=== PATIENT | male | born 1930 | race Caucasian/White ===

== ENCOUNTER 2020-06-21 06:47 | Inpatient (IN) ==
--- NOTE | 2020-06-21 07:27 | History & Physical Bridge Note ---
Date of Service June 21, 2020 History & Physical Bridge Note I have examined the patient, reviewed the History & Physical and in the interval since the performance of the History & Physical I have noted the following changes of clinical significance: no changes noted I have explained the risk, benefit and intent to the cardiac catheterization and the patient is willing to proceed.
--- NOTE | 2020-06-21 07:27 | Pre Anesthesia Assessment ---
Date of Service June 21, 2020 Pre Sedation Assessment Vital Signs Temp Pulse Resp BP Pulse Ox 06/21/20 07:00 36.9 C 76 20 179/100 H 96 Pre-Sedation Airway Assessment Smoking Status: Former smoker Hx Sleep Apnea: No Short, Thick Neck: No Thyromental Distance: > or= 3.5 Finger Breadths Oral Cavity: + WNL Mallampati Class: II ASA: ASA3 NPO Status Date of Last Intake of Fluids: 06/20/20 Date of Last Intake of Solid Food: 06/20/20 Notes The planned sedation has been discussed with the patient. Informed Consent was obtained. I have identified the patient, determined the appropriateness of sedation and have assessed the patient immediately prior to the procedure. All medicine(s) and interventions are by my order.
[2020-06-21] MEDS ORDERED: SODIUM CHLORIDE 0.9% 1000ML 1,000 ML IV SCH (07:30)
[2020-06-21] MEDS ORDERED: fentaNYL citrate 100 MCG/2 ML VIAL ONE (07:45)
[2020-06-21] MEDS ORDERED: niCARdipine HCL INJ 2.5 MG/ML 10 ML AMP ONE (07:45)
[2020-06-21] MEDS ORDERED: HEPARIN (PORCINE) 1000 UNIT/ML 10 ML (CATH LAB USE ONLY) ONE ×2 (07:45→09:16)
[2020-06-21] MEDS ORDERED: NITROGLYCERIN/D5W 100MCG/ML 20ML SYR ONE (07:45)
[2020-06-21] MEDS ORDERED: MIDAZOLAM HCL 1 MG/ML 2ML VIAL ONE ×2 (07:45→09:05)
--- NOTE | 2020-06-21 08:58 | Cardiac Catheterization ---
Date of Service June 21, 2020 Cardiac Cath Report Cardiac Cath Report Procedure: 1. Coronary angiography 2. Left ventriculogram 3. Left heart catheterization History: This is an 89-year-old male patient with a history of coronary artery disease who has had progressive exertional angina and was referred for cardiac catheterization. Procedure summary: After informed consent was obtained the patient was brought to the cardiac catheterization lab. An attempt was made at a right transradial approach however the wire would not advance beyond the midportion of the arm. He then was prepped and draped in usual manner for a right transfemoral approach. Preformed 5 [place] diagnostic catheters were utilized for the coronary angiograms. A 5 [place] pigtail catheter was utilized for the left ventriculogram and left heart pressures. Following the procedure the patient underwent coronary intervention. ACC data: Start time 7:52 AM End time 8:43 AM Opening aortic pressure 154/67 Closing aortic pressure 140/68 Left ventricular pressure 140/14 IV sedation 1 mg intravenous Versed IV fluids 62 cc normal saline Contrast 117 cc Optiray Fluoroscopy time 4.4 minutes Radiation 751 mGy DAP 79.03Gy/cm Right dominant system AUC score 9 Coronary angiography: Selective injections of the left coronary artery revealed the left main trunk to be patent. The left circumflex system consists of 2 large lateral marginal branches with the bifurcation from the main left circumflex. The first marginal branch has an 80% ostial stenosis and the second marginal branch is functionally occluded with left to left collaterals filling distally. There is a tiny ramus branch in the proximal portion of the left circumflex artery. In the proximal portion of the LAD there is a 80 to 90% eccentric stenosis. The LAD bifurcates into a large diagonal branch which is almost equal to the size of the main LAD which does not reach the apex of the heart. The diagonal branch has an 80 to 90% stenosis in its proximal segment. The right coronary artery is dominant. The right coronary artery is diffusely diseased. The PDA has an 80 to 90% mid stenoses. Left ventriculogram: The left ventricle is of normal size with normal systolic function. The mitral valve is competent. The aortic root and ascending aorta have normal morphology and diameter. Summary: The patient has significant three-vessel coronary artery disease as described above. Normal LV function. Recommendations: I discussed with the patient options of continued medical management, surgery, or coronary intervention. The patient states that he cannot do his activities of daily living without having angina and would like something done. He is adamant about not having open heart surgery. I do not believe he would do well if he had surgery and so therefore I believe that is not a bad decision. We will have the interventionalists look at his cath films and decide if coronary intervention can help his angina.
--- NOTE | 2020-06-21 09:38 | Hospitalist Consultation ---
Date of Consultation June 21, 2020 Assessment & Plan (1) S/P cardiac cath: - Monitor in PCU after cardiac cath - Cardiology consulted - appreciate recommendations and will continue Successful PCI of proximal LAD with single drug-eluting stent (2.5 x 18 mm [place]; postdilated with 3.0 NC). Angioplasty of proximal first diagonal with 2.0 balloon. Successful PCI of mid circumflex/OM1 with single drug-eluting stent (2.5 x 15 mm [place]; postdilated with 2.5 NC). - Allow diet after recommended time lying flat (2) CAD (coronary artery disease): - Recently had Imdur increased from 30 to 60 mg, continue - Continue baby aspirin - Following with Dr. Ananda MD in [place] as outpatient (3) HTN (hypertension): -Stable, monitor, slightly elevated after procedure (4) HLD (hyperlipidemia): -Patient has a history of statin intolerance and refuses to take this. Started ezetimibe April 2020 and is tolerating it (5) COPD (chronic obstructive pulmonary disease): - Hx of smoking, quit over 30 years ago - Cont inhalers as prescribed (6) DVT prophylaxis: - scds, plavix, aspirin CODE: Full code Dispo: From home, likely to remain in the hospital x 1 day Supervising Physician Co-Signing Physician Notes Patient seen and examined by me, care coordinated with Salma Loving PA-C, please refer to her note above for further detail. Mr. Toscano is a an 89-year-old male with history of CAD, underwent cardiac angiography with Dr. Sampson, for unstable angina and was found to have severe multivessel disease. He does not wish to undergo bypass, and he would not be a good candidate for it either. Therefore interventional cardiology was contacted, and BART stent was placed into LAD and circumferential. Patient is currently lying in bed, resting in no acute distress. He is alert and oriented, answering questions appropriately. Lungs are clear to auscultation bilaterally, without any significant wheezing rhonchi or crackles. Heart sounds regular with soft systolic murmur, abdomen soft, nontender nondistended. No lower extremity edema noted. Patient moves all 4 extremities spontaneously. Dressings placed over right groin access. Mild ecchymosis at right wrist/ cath attempt. Continue to observe overnight, further recommendations per cardiology. Samara Palencia MD History of Present Illness Reason for Consultation: Medical management Requesting Physician: Dr. Sampson Attending Physician: Jatinder Sampson DO History of Present Illness This is an 89 yo M with PMhx of CAD, s/p cardiac cath on 10/08/2011 [facility] circumflex 60 to 70% stenosis at that time, HTN, HLD, hx of PE in 2013, statin intolerance, moderate COPD/emphysema, CKD stage III, and remote tobacco use history, who underwent elective cardiac catheterization on 06/21/20 due to angina in limited ability to perform ADLs without chest pain. He has been following with Dr. Malave for cardiology in [place] as an outpatient. Today Dr. Meek performed cardiac cath where stenting was done to the LAD and circumflex BART placed in each. Pt is seen at bedside and has no complaints. Denies any shortness of breath, chest pain, pressure, palpitations, or other issues. Pt reports wanting to go home today if at all possible. He recalls his last cardiac cath and how none of the monitoring afterwards was "like this". He is agreeable to further monitoring at this time. 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 Person to contact is Kwesi, who is the older brother of Jose Raul if needed. Pt walks without ambulatory device. Allergies Allergy/AdvReac Type Severity Reaction Status Date / Time No Known Allergies Allergy Unverified 12/29/12 10:43 Home Medications Medication Instructions Recorded Confirmed Type ASPIRIN (ASPIRIN CHEWABLE) 81 mg PO DAILY #1 tab 09/25/11 06/21/20 History Fish Oil (OMEGA-3) 1 cap PO DAILY #2 oil 09/25/11 06/21/20 History MULTIVITAMINS/MINERALS (MVI WITH 1 tab PO DAILY #1 tab 09/25/11 06/21/20 History MINERALS) [id number] 2 tab PO DAILY #1 09/25/11 06/21/20 History PreserVision Lutein 1 cap PO DAILY 06/21/20 06/21/20 History albuterol 90 mcg INHALATION Q4 PRN 06/21/20 06/21/20 History ezetimibe 10 mg PO DAILY 06/21/20 06/21/20 History isosorbide mononitrate 60 mg PO DAILY 06/21/20 06/21/20 History nitroglycerin 0.4 mg SUBLINGUAL PRN 06/21/20 History tiotropium bromide [Spiriva with 1 cap INHALATION DAILY 06/21/20 06/21/20 History HandiHaler] Patient History Social History Smoking Status: Former smoker Hx Alcohol Use: Yes Alcohol type: beer Hx Substance Use: No Preferred Language: Maori Communication Ability: Effective Echo Technician Required: No Beliefs That Will Affect Care: None Current Living Situation: Other Other Information That Helps Us Care for You: No Feels Safe at Home: Yes Safety Concerns: Feels Safe At This Time Review of Systems Review of Systems: Constitutional: No fever, sweats or chills Eyes: No diplopia, no worsening or blurred vision ENT: normal hearing, no trouble swallowing Respiratory: No cough, sputum, dyspnea at rest or on exertion Cardiovascular: No chest pain, tightness or palpitations Abdomen: No pain, nausea, vomiting, diarrhea or constipation Musculoskeletal: No joint pain, calf pain, swelling Neurologic: No weakness, numbness/tingling, or balance problems Psychiatric: No anxiety or depression Skin: No rash or itch Physical Exam Physical Exam: General: awake, alert, no apparent distress Head: Normocephalic, atraumatic ENT: PERRL, EOMI, no pharyngeal exudate, mucous membranes moist Chest: Clear to auscultation, on room air, no adventitious breath sounds Cardiac: Regular rate and rhythm, +systolic murmur grade II/, no JVD, normal peripheral pulses, good capillary refill Abdominal: NABS x 4 quadrants, soft, nondistended, nontender to palpation, no rebound or guarding. Left groin site packed, dressing c/d/i. Extremities: Right wrist attempt cath site minimal ecchymosis. Normal inspection, no peripheral edema or erythema, calfs nontender to palpation Psych: Normal mood and affect Neuro: AAO x 3, strength intact bilaterally and rated 5/5, no motor deficits, speech is clear, no peripheral sensory deficits Results & Data Results & Data ([facility]) Vital Signs (Past 12 Hours) Vital Signs Temp Pulse Resp BP Pulse Ox 06/21/20 07:00 36.9 C 76 20 179/100 H 96 Diagnostic Findings Nuclear stress test 11/2019 The LV ejection fraction is calculated at >70%. Lexiscan nuclear cardiac stress test negative for ischemia. Gated SPECT images reveals normal myocardial thickening and wall motion. Echocardiogram 2019 Calculated LV ejection Fraction = 65% (bi-plane method of discs). The LV wall thickness is mildly increased (concentric). The left ventricular wall motion is normal. The right ventricular cavity size is normal (basal dimension < 4.2 cm RV apical 4 chamber view). The right ventricular systolic function is normal as assessed by tricuspid annular plane systolic excursion (TAPSE) (normal >1.7 cm). The left ventricular diastolic function is mildly abnormal (grade I). There is no significant aortic regurgitation. Mild mitral regurgitation is present. Mild tricuspid regurgitation is present. No pericardial effusion is noted. Normal IVC size and collapsability with sniff indicates a normal right atrial pressure of 3 mmHg. The estimated pulmonary artery systolic pressure is 31mm Hg Medications Administered Current Inpatient Medications Acetaminophen (Acetaminophen 325 Mg Tab) 650 mg PO Q4H PRN PRN Reason: MILD Pain (Scale 1,2,3) Stop: 07/21/20 10:06 Albuterol (Albuterol Hfa 8 Gm Inhaler) 1 puffs INH Q4H PRN PRN Reason: Dyspnea Stop: 07/21/20 10:41 Aspirin (Aspirin 81 Mg Ectab) 81 mg PO QAM [facility] Stop: 07/22/20 08:59 Clopidogrel Bisulfate (Clopidogrel Bisulfate 75 Mg Tab) 75 mg PO QAM [facility] Stop: 07/22/20 08:59 Ezetimibe (Ezetimibe 10 Mg Tablet) 10 mg PO DAILY [facility] Stop: 07/22/20 08:59 Sodium Chloride (Nss 1000ml) 1,000 mls @ 100 mls/hr IV .Q10H ANALY Stop: 06/21/20 15:45 Last Admin: 06/21/20 11:58 Dose: Not Given Documented by: Isosorbide Mononitrate (Isosorbide Sharp Extended Rel 60 Mg Tabcr) 60 mg PO DAILY ANALY Stop: 07/22/20 08:59 Multivitamins/Minerals (Cerovite Adv Formula Tab) 1 tab PO DAILY ANALY Stop: 07/22/20 08:59 Nitroglycerin (Nitroglycerin Sl 0.4 Mg/Tab Tab) 0.4 mg SL PRN PRN PRN Reason: Chest Pain Stop: 07/21/20 10:06 Ondansetron HCl (Ondansetron Inj 2 Mg/Ml 2 Ml Vial) 4 mg IV Q6H PRN PRN Reason: Nausea And Vomiting Stop: 07/21/20 10:06 Umeclidinium [place] (Umeclidinium [place] 62.5mcg/Blister 7 Puffs/Inhaler) 1 puffs INH DAILY ANALY Stop: 07/22/20 08:59
--- NOTE | 2020-06-21 09:52 | Post Anesthesia Assessment ---
Date of Service June 21, 2020 Post Sedation Assessment Vital Signs Temp Pulse Resp BP Pulse Ox 06/21/20 07:00 98.4 F 76 20 179/100 H 96 Recovery Score Activity: Moves 4 extremities Respiration: Deep Breath/Cough Circulation: +/-20% PreAnes Value Consciousness: Fully Awake Oxygen Saturation: O2 needed for >90% Discharge Sedation Level of Care: Fast Track Phase II Post Sedation Plan On clinical assessment, the patient appears to have tolerated the sedation without complications. Patient is recovering as anticipated. Patient will continue to be monitored by nursing and may be discharged when sedation discharge criteria are met per below protocol. Upon Completions of procedure up to 15 minutes continue every 5 minute vital signs and the P.A.R. score; then discharge to a Phase I or Fast Track to Phase II per the following guidelines: * Discharge Patient to appropriate Phase II area if PAR is 8 or greater or return to pre- procedure baseline. The post - procedure orders will be as directed. * If PAR score is less than 8 or not return to pre-procedure baseline then patient will follow Phase I monitoring till PAR is reached for Phase II. The Phase I may be done in procedure room or may call to secure a Phase I area. * If naloxone or flumazenil are used for reversal, hold in Phase I for continued monitoring from when last reversal dose was given for a minimum of 60 minutes or longer pending the nurse and/or physician discretion of patient condition before discharge to Phase II. Please call the Sedation Physician to re-evaluate and complete post-note for discharge to Phase II area. Do NOT discharge from procedure sedation or Phase 1 until post- sedation evaluation note is complete by procedure /sedation MD Sedation Discharge Instructions to be given to the patient at discharge to home.
[2020-06-21] MEDS ORDERED: CLOPIDOGREL BISULFATE 300 MG TAB ONE (09:56)
[2020-06-21] MEDS ORDERED: ONDANSETRON INJ 2 MG/ML 2 ML VIAL IV PRN (10:07)
[2020-06-21] MEDS ORDERED: NITROGLYCERIN SL 0.4 MG/TAB TAB SL PRN (10:07)
[2020-06-21] MEDS ORDERED: ACETAMINOPHEN 325 MG TAB PO PRN (10:07)
--- NOTE | 2020-06-21 10:07 | Cardiac Catheterization ---
ACC Data: [employer] Development [employer] Cardiac Status Clinical evaluation leading to the procedure CAD Presenation: Unstable angina Anginal Classification: CCS III Heart Failure: No Cardiogenic Shock within 24 Hours: No Cardiac Arrest within 24 Hours: No Imaging Studies Past 6 Months: Yes Stress Studies Past 6 Months: No Diagnostic Physicians Name: Storm Meek MD Status: Elective Closure Device Percutaneous Entry Location: Femoral Closure Device: Angio-Seal Recommendations: PCI without planned CABG PCI Indication: Angina despite med therapy and Unstable Angina Lesion Segment Name: Proximal LAD Culprit Artery: Yes Stenosis Prior to Rx (%): 80 Chronic Total Occlusion: No IVUS: No FFR: No Pre-Procedure ABDOULAYE Flow: 3 Previously Treated Lesion: No Lesion Complexity: Non-High/Non-C Lesion Length (mm): 15 Thrombus Present: No Bifurcation Lesion: Yes Guidewire Across Lesion: Stenosis Post-Procedure (%): 0 Post-Procedure ABDOULAYE Flow: 3 Devices(s) Deployed: Yes Yes Lesion #2 Segment Name: mid circumlex/OM1 Culprit Artery: Yes Stenosis Prior to Rx (%): 80 Chronic Total Occlusion: No IVUS: No FFR: No Pre-Procedure ABDOULAYE Flow: 3 Previously Treated Lesion: No Lesion Complexity: Non-High/Non-C Lesion Length (mm): 12 Thrombus Present: No Bifurcation Lesion: Yes Guidewire Across Lesion: Yes Stenosis Post-Procedure (%): 0 Post-Procedure ABDOULAYE Flow: 3 Devices(s) Deployed: Yes Intraprocedure Events Significant Disection: No Perforation: No Cardiac Cath Procedure Full Procedure Date June 21, 2020 Pre-Procedure Diagnosis Pre-Procedure Diagnosis: Angina and CAD AUC Score AUC Score: 7 Post-Procedure Diagnosis Post-Procedure Diagnosis: Severe CAD and Successful PCI Procedure(s) Performed Procedure(s) Performed: Coronary Angiography, PTCA and Drug Eluting Stent Addiction Nurse Storm Meek MD Director Of Medical Education(s) Larry Estimated Blood Loss Estimated Blood Loss: 15 Medication(s) Medication(s): Clopidogrel, Fentanyl, Heparin, Lidocaine 1%, Nicardipine, Nitroglycerin and Versed Summary of Findings Indication: Accelerating angina Access: 6 Fr right common femoral artery Catheters: EBU 3.75 guide Findings: For full details of patient's coronary angiography please see cath report dictated by Dr. Sampson. Briefly, patient found to have multivessel disease including proximal LAD/D1 and severe mid circumflex into OM1 disease. Decision to proceed with PCI. -- PCI -- Antithrombotic therapy: Heparin, clopidogrel Procedure: Left main cannulated with EBU 3.75 guide [place] wire passed across LAD lesion into distal vessel Md Physician Dermatologist 50 wire passed into first diagonal Proximal first diagonal stenosis dilated with 2.0 balloon. Stenosis expanded appropriately. Proximal LAD lesion predilated with 2.0 compliant balloon Dilated LAD lesion stented with 2.5 x 18 mm [place] drug-eluting stent Stent post-dilated with 3.0 noncompliant balloon IC vasodilators administered for spasm Post procedure ABDOULAYE 3 flow in LAD, diagonal, stent well expanded with minimal residual stenosis. Mild residual stenosis in diagonal without evidence of dissection. Wires removed and submersible pilot 50 wire redirected into circumflex into OM1 Mid circumflex/proximal OM1 dilated with 2.5 balloon Mid circumflex into OM1 stented with 2.5 x 15 mm [place] drug-eluting stent Stent postdilated with 3.0 NC balloon IC vasodilators administered for spasm Post procedure ABDOULAYE-3 flow in circumflex system with well-expanded stent and no apparent edge complications or branch vessel loss. Arterial Closure: Angio-Seal Summary: 1. Severe multi-vessel coronary artery disease 2. Successful PCI of proximal LAD with single drug-eluting stent (2.5 x 18 mm [place]; postdilated with 3.0 NC). 3. Angioplasty of proximal first diagonal with 2.0 balloon. 4. Successful PCI of mid circumflex/OM1 with single drug-eluting stent (2.5 x 15 mm [place]; postdilated with 2.5 NC). Recommendations: To PCU for continued monitoring Loaded with clopidogrel 600 mg in Community Development Planner Continue dual-antiplatelet therapy for at least 6 months Consult cardiac Rehab Hemodynamics Rest Ao:: 153/72/160 Final Ao: 91/43/81 LV: -- Recommendations Recommendations: PCI without planned CABG Specimens Specimens: None Radiation Exposure (mGy) 3588 Contrast (mls) 230 Fluids (cc crystalloids) Fluids (cc crystalloids): 377 Drains Drains: None Anesthesia Moderate [id number] Procedural Complication(s) None Disposition PCU I attest to the content of the Intraoperative Record and any orders documented therein. Any exceptions are noted below. [facility] Card Cath Procedure Codes Moderate Sedation Procedure 1: Sedation/Anesthesia: 24283 Mod Sedation by the same physician; Ea [id number] Minutes Angioplasty Procedure 1: Cardiovascular Angioplasty Procedures: PTCA; ea addl branch of a major cor art RC LC LD Stenting Procedure 1: Cardiovascular Stent Procedures: Perc transcatheter placement of intracoronary stent(s), with ang Procedure 2: Cardiovascular Stent Procedures: Ea addl branch of a major coronary artery PG Care Time/CCT Total # of Minutes Spent Total Time Spent with Patient: Total time spent is greater than 50% in coordination of care (as documented) at patient's floor/unit and/or counseling patient:
[2020-06-21] MEDS ORDERED: ALBUTEROL HFA 8 GM INHALER INH PRN (10:42)
[2020-06-22 06:18] LABS: Basophils # (auto) 0.01 K/uL (0-0.2); Basophils % (auto) 0.1 %; Eosinophils # (auto) 0.09 K/uL (0-0.5); Eosinophils % (auto) 1.2 %; Hematocrit (blood only) 45.5 % (42-52); Immature Granulocytes # (auto) 0.01 K/uL (0.00-0.02); Immature Granulocytes % (auto) 0.1 %; Lymphocytes # (auto) 2.66 K/uL (1.2-3.4); Lymphocytes % (auto) 34.4 %; Mean Corpuscular Hemoglobin 31.1 pg (25-34); Mean Corpuscular Hgb Conc 35.2 g/dL (32-36); Mean Corpuscular Volume 88.5 fL (80-100); Mean Platelet Volume 9.2 fL (7.4-10.4); Monocytes % (auto) 12.9 %; Neutrophils # (auto) 3.96 K/uL (1.4-6.5); Neutrophils % (auto) 51.3 %; Platelet Count 166 K/uL (130-400); RDW Standard Deviation 45.8 fL (36.4-46.3); Red Blood Count 5.14 M/uL (4.7-6.1); White Blood Count 7.73 K/uL (4.8-10.8)
[2020-06-22 06:44] LABS: Calcium 9.3 mg/dl (8.5-10.1); Creatinine Clr Calc Pharmacy 42.6 ml/min; Est GFR (African American) 71.8; Est GFR (Non-African American) 61.9
--- NOTE | 2020-06-22 08:02 | Electrocardiogram Report ---
Test Reason : Blood Pressure : / mmHG Vent. Rate : 056 BPM Atrial Rate : 056 BPM P-R Int : 166 ms QRS Dur : 086 ms QT Int : 444 ms P-R-T Axes : 067 033 021 degrees QTc Int : 428 ms Sinus bradycardia Otherwise normal ECG No previous ECGs available Confirmed by Javier Méndez ([id number]) on 06/22/2020 8:01:43 AM Referred By: Jatinder Sampson Confirmed By:Javier Méndez
[2020-06-22] MEDS ORDERED: UMECLIDINIUM BROMIDE 62.5MCG/BLISTER 7 PUFFS/INHALER INH SCH (09:00)
[2020-06-22] MEDS ORDERED: ASPIRIN 81 MG ECTAB PO SCH (09:00)
[2020-06-22] MEDS ORDERED: CLOPIDOGREL BISULFATE 75 MG TAB PO SCH (09:00)
[2020-06-22] MEDS ORDERED: EZETIMIBE 10 MG TABLET PO SCH (09:00)
[2020-06-22] MEDS ORDERED: CEROVITE ADV FORMULA TAB PO SCH (09:00)
[2020-06-22] MEDS ORDERED: ISOSORBIDE MONO EXTENDED REL 60 MG TABCR PO SCH (09:00)
--- NOTE | 2020-06-22 09:45 | Hospitalist Progress Note ---
Date of Service June 22, 2020 Assessment & Plan (1) S/P cardiac cath: - Monitor in PCU after cardiac cath - no overnight events on tele - Cardiology consulted - appreciate recommendations and will continue Successful PCI of proximal LAD with single drug-eluting stent (2.5 x 18 mm [place]; postdilated with 3.0 NC). Angioplasty of proximal first diagonal with 2.0 balloon. Successful PCI of mid circumflex/OM1 with single drug-eluting stent (2.5 x 15 mm [place]; postdilated with 2.5 NC). - Pt did not eat breakfast due to wanting to eat at home today. Anticipates discharge. (2) CAD (coronary artery disease): - Recently had Imdur increased from 30 to 60 mg, continue - Continue baby aspirin - Following with Dr. Ananda MD in [place] as outpatient - As above (3) HTN (hypertension): -Stable, monitor, slightly elevated since cath, refused morning medications as above. (4) HLD (hyperlipidemia): -Patient has a history of statin intolerance and refuses to take this. Started ezetimibe April 2020 and is tolerating it (5) COPD (chronic obstructive pulmonary disease): - Hx of smoking, quit over 30 years ago - Cont inhalers as prescribed (6) DVT prophylaxis: - scds, plavix, aspirin CODE: Full code Dispo: From home, discharge per the primary team likely today. Thank you for involving medicine in the care of Mr. Toscano, please do not hesitate to call with questions or concerns. Admission and Anticipated Discharge Date Admission Date: June 21, 2020 Supervising Physician Co-Signing Physician Notes Patient is seen and examined at bedside. States feeling well today. Eager to get discharged. Discussed with cardiology today. Denies chest pain, dyspnea, dizziness, nausea, abdominal pain. Offers no other complaints. On exam patient is moderately built and nourished, no apparent distress, normocephalic atraumatic, lungs are clear to auscultation, normal breath sounds, S1-S2, no murmur, abdomen soft, nontender, normal bowel sounds, alert, awake, oriented, grossly no focal deficits, no pedal edema. Unstable angina S/P successful PCI to LAD. Appreciate cardiology input. Continue aspirin, Plavix, Zetia. History of statin intolerance. Needs follow-up with cardiology upon discharge. Continue to monitor. I personally reviewed the record. Patient is interviewed and examined at bedside. Patient's care is coordinated with Shania Loving PA-C. Please refer to the documentation above for details of patient's presentation and for discussion of other issues. Subjective The patient was seen and examined this morning. 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 Denies any complaints. He notes he has not had any chest pain with exertional activities such as walking, getting dressed, going to the bathroom, etc. Did not eat breakfast and refuses to take medication here this morning because he would like to go home and eat his own breakfast first, then take medications. Review of Systems Review of Systems: Constitutional: No fever, sweats or chills Eyes: No diplopia, no worsening or blurred vision ENT: normal hearing, no trouble swallowing Respiratory: No cough, sputum, dyspnea at rest or on exertion Cardiovascular: No chest pain, tightness or palpitations Abdomen: No pain, nausea, vomiting, diarrhea or constipation Musculoskeletal: No joint pain, calf pain, swelling Neurologic: No weakness, numbness/tingling, or balance problems Psychiatric: No anxiety or depression Skin: No rash or itch Physical Exam Physical Exam: General: awake, alert, no apparent distress Head: Normocephalic, atraumatic ENT: PERRL, EOMI, no pharyngeal exudate, mucous membranes moist Chest: Clear to auscultation, on room air, no adventitious breath sounds Cardiac: Regular rate and rhythm, few extra beats, + systolic murmur, no JVD, normal peripheral pulses, good capillary refill Abdominal: NABS x 4 quadrants, soft, nondistended, nontender to palpation, no rebound or guarding Extremities: Normal inspection, no peripheral edema or erythema, calfs nontender to palpation Psych: Normal mood and affect Neuro: AAO x 3, strength intact bilaterally and rated 5/5, no motor deficits, speech is clear, no peripheral sensory deficits Results & Data Results & Data ([facility]) Vital Signs (Past 12 Hours) Vital Signs Temp Pulse Pulse Resp BP BP Pulse Ox 06/22/20 07:45 78 06/22/20 07:17 36.7 C 71 19 151/70 H 94 06/22/20 03:29 36.5 C 69 15 147/62 H 94 06/21/20 23:03 36.6 C 74 18 154/85 H 93
--- NOTE | 2020-06-22 11:47 | Cardiology Progress Note ---
Date of Service June 22, 2020 Assessment & Plan (1) CAD (coronary artery disease): (2) Stented coronary artery: The patient is very anxious to leave the hospital. He can be discharged on his current medications. [facility] He should have follow-up with them in the next 2 to 3 weeks. Admission and Anticipated Discharge Date Admission Date: June 21, 2020 Subjective Patient very anxious to go home. Uneventful night. Review of Systems Review of Systems: All systems reviewed & are unremarkable except as noted in Subjective Physical Exam Physical Exam: General: no acute distress and stated age Head: normocephalic, no masses, lesions, tenderness or abnormalities Eyes: conjunctiva are pink and non-injected, sclera clear Neck: supple, no adenopathy, no bruits, normal jugular venous pulse, no hepatojugular reflux Chest: normal shape and normal respiratory effort Lungs: clear to auscultation and percussion Cardiac Exam: - regular rate & rhythm, no murmurs gallops or rubs - normal S1, normal S2 Pulses: 2(+) throughout Abdomen: abdomen soft, non-tender, no abnormal masses and no hepatosplenomegaly Musculoskeletal: no gait disturbance, no joint inflammation, no deforming arthritis Extremities: no edema and no cyanosis, cath site looks good. Neuro: grossly normal exam Results & Data ([facility]) Vital Signs (Past 12 Hours) Vital Signs Temp Pulse Pulse Resp BP BP Pulse Ox 06/22/20 11:24 36.7 C 71 19 147/62 H 151/70 H 94 06/22/20 07:45 78 06/22/20 07:17 36.7 C 71 19 151/70 H 94 06/22/20 03:29 36.5 C 69 15 147/62 H 94 Laboratory Results Laboratory Results - last 24 hr 06/22/20 06/22/20 05:51 05:51 WBC 7.73 RBC 5.14 Hgb 16.0 Hct 45.5 MCV 88.5 MCH 31.1 MCHC 35.2 RDW Std Deviation 45.8 RDW Coeff of [place] 14.0 Plt Count 166 MPV 9.2 Immature Gran % (Auto) 0.1 Neut % (Auto) 51.3 Lymph % (Auto) 34.4 [place] % (Auto) 12.9 Eos % (Auto) 1.2 Baso % (Auto) 0.1 Neut # (Auto) 3.96 Lymph # (Auto) 2.66 [place] # (Auto) 1.00 H Eos # (Auto) 0.09 Baso # (Auto) 0.01 Immature Gran # (Auto) 0.01 Sodium 139 Potassium 4.0 Chloride 108 H Carbon Dioxide 27 Anion Gap 4.0 BUN 17 Creatinine 1.06 Est Cr Clr Drug Dosing 42.6 Est GFR ( Amer) 71.8 Est GFR (Non-Af Amer) 61.9 BUN/Creatinine Ratio 16.0 Glucose 100 H Calcium 9.3 Medications Administered Current Inpatient Medications Acetaminophen (Acetaminophen 325 Mg Tab) 650 mg PO Q4H PRN PRN Reason: MILD Pain (Scale 1,2,3) Stop: 07/21/20 10:06 Albuterol (Albuterol Hfa 8 Gm Inhaler) 1 puffs INH Q4H PRN PRN Reason: Dyspnea Stop: 07/21/20 10:41 Aspirin (Aspirin 81 Mg Ectab) 81 mg PO QAM [facility] Stop: 07/22/20 08:59 Last Admin: 06/22/20 07:46 Dose: Not Given Documented by: Clopidogrel Bisulfate (Clopidogrel Bisulfate 75 Mg Tab) 75 mg PO QAM [facility] Stop: 07/22/20 08:59 Last Admin: 06/22/20 07:46 Dose: Not Given Documented by: Ezetimibe (Ezetimibe 10 Mg Tablet) 10 mg PO DAILY [facility] Stop: 07/22/20 08:59 Last Admin: 06/22/20 07:46 Dose: Not Given Documented by: Isosorbide Mononitrate (Isosorbide [place] Extended Rel 60 Mg Tabcr) 60 mg PO DAILY [facility] Stop: 07/22/20 08:59 Last Admin: 06/22/20 07:46 Dose: Not Given Documented by: Multivitamins/Minerals (Cerovite Adv Formula Tab) 1 tab PO DAILY [facility] Stop: 07/22/20 08:59 Last Admin: 06/22/20 07:46 Dose: Not Given Documented by: Nitroglycerin (Nitroglycerin Sl 0.4 Mg/Tab Tab) 0.4 mg SL PRN PRN PRN Reason: Chest Pain Stop: 07/21/20 10:06 Ondansetron HCl (Ondansetron Inj 2 Mg/Ml 2 Ml Vial) 4 mg IV Q6H PRN PRN Reason: Nausea And Vomiting Stop: 07/21/20 10:06 Umeclidinium [place] (Umeclidinium [place] 62.5mcg/Blister 7 Puffs/Inhaler) 1 puffs INH DAILY [facility] Stop: 07/22/20 08:59 Last Admin: 06/22/20 07:46 Dose: Not Given Documented by:
--- NOTE | 2020-06-22 19:07 | Discharge Summary ---
Date of Service June 22, 2020 Admission HPI Per Admitting Provider History of Present Illness This is an 89 yo M with PMhx of CAD, s/p cardiac cath on 10/08/2011 [facility] circumflex 60 to 70% stenosis at that time, HTN, HLD, hx of PE in 2013, statin intolerance, moderate COPD/emphysema, CKD stage III, and remote tobacco use history, who underwent elective cardiac catheterization on 06/21/20 due to angina in limited ability to perform ADLs without chest pain. He has been following with Dr. Malave for cardiology in [place] as an outpatient. Today Dr. Meek performed cardiac cath where stenting was done to the LAD and circumflex BART placed in each. Pt is seen at bedside and has no complaints. Denies any shortness of breath, chest pain, pressure, palpitations, or other issues. Pt reports wanting to go home today if at all possible. He recalls his last cardiac cath and how none of the monitoring afterwards was "like this". He is agreeable to further monitoring at this time. Admission Exam Per Admitting Provider Physical Exam Physical Exam: General: awake, alert, no apparent distress Head: Normocephalic, atraumatic ENT: PERRL, EOMI, no pharyngeal exudate, mucous membranes moist Chest: Clear to auscultation, on room air, no adventitious breath sounds Cardiac: Regular rate and rhythm, +systolic murmur grade II/, no JVD, normal peripheral pulses, good capillary refill Abdominal: NABS x 4 quadrants, soft, nondistended, nontender to palpation, no rebound or guarding. Left groin site packed, dressing c/d/i. Extremities: Right wrist attempt cath site minimal ecchymosis. Normal inspectio n, no peripheral edema or erythema, calfs nontender to palpation Psych: Normal mood and affect Neuro: AAO x 3, strength intact bilaterally and rated 5/5, no motor deficits, speech is clear, no peripheral sensory deficits Principal Diagnosis Unstable Angina S/P PCI Discharge Data Allergies Allergy/AdvReac Type Severity Reaction Status Date / Time No Known Allergies Allergy Unverified 12/29/12 10:43 Consultations 06/21/20 08:46 Consult Hospitalist Routine 06/21/20 10:10 Consult Cardiac Rehabilitation Routine Procedures Performed Operation Date: 06/21/20 08:00 Actual Procedures s Cineradiography w/Routine Exam - Jatinder Sampson, DO p Cath, Left with Cors and Vent - Jatinder Sampson, DO s Drug Eluting Stent SGl Vessel - Santo Meek MD s Drug Eluting Stent each ADDTL Vessel - Santo Meek MD s Placement Art Occlusive Device - Santo Meek MD Ordered Studies 06/21/20 07:13 CL Cath Imgs for PACS use only Routine Hospital Course (1) S/P cardiac cath: - Monitor in PCU after cardiac cath - no overnight events on tele - Cardiology consulted - appreciate recommendations and will continue Successful PCI of proximal LAD with single drug-eluting stent (2.5 x 18 mm Yosi; postdilated with 3.0 NC). Angioplasty of proximal first diagonal with 2.0 balloon. Successful PCI of mid circumflex/OM1 with single drug-eluting stent (2.5 x 15 mm [place]; postdilated with 2.5 NC). - Pt did not eat breakfast due to wanting to eat at home today. Anticipates discharge. (2) CAD (coronary artery disease): - Recently had Imdur increased from 30 to 60 mg, continue - Continue baby aspirin - Following with Dr. Ananda MD in [place] as outpatient - As above (3) HTN (hypertension): -Stable, monitor, slightly elevated since cath, refused morning medications as above. (4) HLD (hyperlipidemia): -Patient has a history of statin intolerance and refuses to take this. Started ezetimibe April 2020 and is tolerating it (5) COPD (chronic obstructive pulmonary disease): - Hx of smoking, quit over 30 years ago - Cont inhalers as prescribed (6) DVT prophylaxis: - scds, plavix, aspirin CODE: Full code Dispo: From home, discharge per the primary team likely today. Thank you for involving medicine in the care of Mr. Toscano, please do not hesitate to call with questions or concerns. Total Time Total Time Spent Total Time Spent (In Minutes): 38 minutes Total Time Includes: Examination of the Patient, Discharge Planning, Medication Reconciliation, Communication With Other Providers and Other Discharge Plan Discharge Items Patient Disposition: Home - Self-Care Reason For Visit: Coronary Artery Disease; Chest Pain Discharge Diagnosis: Unstable Angina Activity: Per Instructions section Exercise/Sports: Wait until after follow-up appointment Non-emergency contact: Primary Care Provider and Classroom Aide Call non-emergency contact if: you have any medication questions, your symptoms worsen, your pain is not controlled, your pain is concerning for you and you have a fever Follow-up/Referrals: Vaibhav Marquez DO [Primary Care Provider] - 06/27/20 10:00 am Diet: Heart Healthy Addtl Attending Provider Instructions: Follow-up with your primary care physician Dr.Jean Marquez in 1 week as advised Follow-up with your pedicurist Dr. Malave in 1-2 weeks as advised Take your medications regularly as prescribed. Seek immediate medical attention if your symptoms reoccur or worsen Home Care: * Take your medications exactly as directed. Don't skip doses. * Remember that recovery after a heart attack takes time. Plan to rest for at lease 4-8 weeks while you recover. Then return to normal activity when your doctor says it's okay. * Ask your doctor about joining a heart rehabilitation program. * Tell your doctor if you are feeling depressed. Feelings of sadness are common after a heart attack, but it is important that you speak to someone if you are feeling overwhelmed by these feelings. * If you are having chest pain, call 911 for an ambulance. Do NOT drive yourself to the hospital. * Ask your family members to learn CPR. * Learn to take your own blood pressure and pulse. Keep a record of your results. Ask your doctor when you should seek emergency medical attention. He or she will tell you which blood pressure reading is dangerous. Lifestyle Changes: * Maintain a healthy weight. Get help to lose any extra pounds. * Cut back on salt. * Limit canned, dried, packaged, and fast foods. * Don't add salt to your food. * Season foods with herbs instead of salt when you cook. * Break the smoking habit. Enroll in a stop-smoking program to improve your chances of success. * Limit fatty foods. * Ask your doctor about having your lipid levels checked regularly. * Build up your activity according to your doctor's recommendation. * Ask your doctor when it's okay to resume sexual activity. * Tell your doctor about any erectile dysfunction (ED) medication you are ta cecilia. Some ED medications are not safe if you take certain heart medications. * Try to manage stress. Follow Up: It is important for you to keep your follow up appointments with your medical provider. Pending Studies at Discharge: No Stand-Alone Forms: My [facility], Smoking Cessation Medications and DC Order Prescriptions: New clopidogrel 75 mg Tablet 75 mg PO QAM Qty: 30 RF: 1 aspirin 81 mg Tablet,Delayed Release (Dr/Ec) 81 mg PO QAM Qty: 30 RF: 1 Continued Fish Oil (OMEGA-3) oil 1 cap PO DAILY Qty: 2 RF: 0 MULTIVITAMINS/MINERALS (MVI WITH MINERALS) tablet 1 tab PO DAILY Qty: 1 RF: 0 [id number] 2 tab PO DAILY Qty: 1 RF: 0 isosorbide mononitrate 30 mg Tablet Extended Release 24 Hr 60 mg PO DAILY RF: 0 nitroglycerin 0.4 mg Tablet, Sublingual 0.4 mg sublingual PRN (Reason: Chest Pain) RF: 0 albuterol 90 mcg/actuation Aerosol 90 mcg INHALATION Q4 PRN (Reason: Dyspnea) RF: 0 ezetimibe 10 mg Tablet 10 mg PO DAILY RF: 0 Spiriva with HandiHaler 18 mcg Capsule, W/Inhalation Device 1 cap INHALATION DAILY RF: 0 PreserVision Lutein 1 cap PO DAILY RF: 0 Discontinued ASPIRIN (ASPIRIN CHEWABLE) 81 MG CHEWABLE TAB 81 mg PO DAILY Qty: 1 RF: 0 Discharge Orders: Discharge Order (Routine); Ordered 06/22/20 Ordered By: Buck Burton Admission Data Admit Date/Time: 06/21/20 08:44 Attending Provider: Jatinder Sampson Admit Provider: Jatinder Sampson Primary Care Provider: Vaibhav Marquez Other Providers: Milagro Aldrich ; Shania Loving ; Carlotta Valdovinos ; Agnes Roberts ; Aurea Hannon ; Lena Nunez ; Caro Ward ; Mavis Rosario ; Audi Buenrostro ; Miguel Ángel Hale ; Son Ontiveros ; Evelyn Wolf ; Yusra Hackett ; Buck Burton ; Funmi Hunt ; Ilda Guthrie ; Francesco Valadez ; Shelby Nguyễn ; Vilma Ballesteros ; Josephine Charlton ; Rosa Bradley I. ; Brian Palencia Other Interventions: Discharge Summary Assessment (RN) Last Done: 06/22/20 11:24 Supervising Physician Co-Signing Physician Notes Patient is seen and examined at bedside. States feeling well today. Eager to get discharged. Discussed with cardiology today. Denies chest pain, dyspnea, dizziness, nausea, abdominal pain. Offers no other complaints. On exam patient is moderately built and nourished, no apparent distress, normocephalic atraumatic, lungs are clear to auscultation, normal breath sounds, S1-S2, no murmur, abdomen soft, nontender, normal bowel sounds, alert, awake, oriented, grossly no focal deficits, no pedal edema. Unstable angina S/P successful PCI to LAD. Appreciate cardiology input. Continue aspirin, Plavix, Zetia. History of statin intolerance. Needs follow-up with cardiology upon discharge. Continue to monitor. I personally reviewed the record. Patient is interviewed and examined at bedside. Patient's care is coordinated with Shania Loving PA-C. Please refer to the documentation above for details of patient's presentation and for discussion of other issues.
== END 2020-06-22 12:05 | disposition home or self-care (01) | DRG 247 ==
LOC: CC 06:47 → 2S 08:44